=== PATIENT | female | born 1975 | race Caucasian/White ===

== ENCOUNTER 2016-07-09 03:30 | Emergency (ER) | payer SELFPAY ==
[~2016-07-09] VITALS: Ht 170.2 cm; Wt 90.7 kg
[2016-07-09 03:45] VITALS: BP 140/80
--- NOTE | 2016-07-09 03:49 | NUR ---
BIBA TO ER BED 3
[2016-07-09] MEDS ORDERED: LORazepam 1 MG TAB PO ONE (04:10)
[2016-07-09] MEDS ORDERED: HALOPERIDOL IM 5 MG/ML VIAL IM ONE (04:30)
[2016-07-09] MEDS ORDERED: LORazepam 2 MG/ML VIAL IM ONE (04:30)
--- NOTE | 2016-07-09 05:29 | NUR ---
PATIENT MOLLY PRESENTS TO ED AFTER BEING FOUND WANDERING OUTSIDE OF [facility] BY SONIA AGUILERA . [facility] REPORTS PT REFUSING TO ANSWER ANY QUESTIONS AND BECAME COMBATIVE WHEN PLACED ON GURNEY. UPON ARRIVAL, PT STILL REFUSES TO ANSWER ANY QUESTIONS. PT STATES SHE IS NOT IN ANY PAIN AT THIS TIME . DENIES N/V/D; SKIN IS PINK/WARM/DRY; AAOX4 WITH EVEN AND STEADY GAIT; LUNGS CLEAR BL; HR EVEN AND REGULAR; PT DENIES ANY FEVER, CP, SOB, OR COUGH AT THIS TIME; PATIENT STATES PAIN OF 0/10 AT THIS TIME; VSS; PATIENT POSITIONED FOR COMFORT; HOB ELEVATED; BEDRAILS UP X2; BED DOWN. ER MD MADE AWARE OF PT STATUS.
--- NOTE | 2016-07-09 05:33 | NUR ---
Physician order given to place SOFT type restraints to BL UPPER AND LOWER EXTREMITIES to prevent HARM TO SELF AND OTHERS. Resraints placed with quick-release ties to bed frame. Pt under observation.
--- NOTE | 2016-07-09 06:55 | NUR ---
RESTRAINTS REMOVED FROM ALL FOUR EXTREMITIES. SKIN INTACT. PT TOLERATED WELL
[2016-07-09 07:01] VITALS: BP 114/54
--- NOTE | 2016-07-09 07:02 | NUR ---
Patient discharged with v/s stable. Written and verbal after care instructions given and explained. Patient verbalized understanding. Ambulatory with steady gait. All questions addressed prior to discharge. Advised to follow up with PMD.
== END 2016-07-09 07:02 | disposition home or self-care (01) ==
LOC: MED 03:30
DX: R41.82 Altered mental status, unspecified (principal); F10.129 Alcohol abuse with intoxication, unspecified
CPT/HCPCS: 96372; 99284; J1630; J2060; J7060

== ENCOUNTER 2016-07-20 04:27 | Emergency (ER) | payer SELFPAY ==
[~2016-07-20] VITALS: Ht 172.7 cm; Wt 83.6 kg
--- NOTE | 2016-07-20 04:27 | NUR ---
BIBA TO ER BED 3
[2016-07-20 04:45] VITALS: BP 139/93
--- NOTE | 2016-07-20 04:57 | NUR ---
MOLLY, PT NOT COOPERATIVE WITH STAFF. VERY AGITATED, NOT WANTING TO ANSWER ANY QUESTIONS OF WHO SHE IS OR ANY MEDICAL QUESTIONS. NO N/V/D APPEARS TO BE PRESENT. NO FEVER/COUGH/SOB NOTED AT THIS TIME.VSS HOB ELEVATED; BEDRAILS UP X2; BED DOWN. ER MD MADE AWARE OF PT STATUS.
[2016-07-20 05:50] VITALS: BP 139/93
--- NOTE | 2016-07-20 05:51 | NUR ---
Patient discharged with v/s stable. Written and verbal after care instructions given and explained. Patient verbalized understanding. Ambulatory with steady gait. All questions addressed prior to discharge. Advised to follow up with PMD. PT REFUSED TO SIGN D/C PAPER
== END 2016-07-20 05:50 | disposition home or self-care (01) ==
LOC: MED 04:27
DX: R45.1 Restlessness and agitation (principal)